=== PATIENT | female | born 1960 | race African-American/Black ===

== ENCOUNTER → 2017-06-18 | Outpatient (CLI) | payer BC ==
[~2017-06-18] MED LIST: ASPIRIN EC81 M1 PO; FISH OIL 1,001000 M1 PO; FLEXERIL10 MG PO; K-DUR20 ME1 PO; LEVEMIR100 U/ML SUBQ; MULTI-DAY VITAM1 TAB PO; NAPROXEN SODIU550 MG PO; NOVOLOG100 U/M2 SUBQ; ORUDIS75 M1 PO; PREDNISONE1 MG PO; SIMVASTATIN20 MG PO; TENORETIC
== END | disposition home or self-care (01) ==
LOC: CLAB 08:38
DX: E11.9 Type 2 diabetes mellitus without complications (principal)
CPT/HCPCS: 36415; 83036